=== PATIENT | female | born 1990 | race Caucasian/White ===

== ENCOUNTER → 2017-02-06 | Emergency (ER) | payer BC ==
[~2017-02-06] VITALS: Ht 160 cm; Wt 63.5 kg
[~2017-02-06] MED LIST: DiphenhydrAMINE 50mg/ml Inj IVP ONE; IBUPROFEN600 MG ORAL; Ketorolac 30mg Inj IV ONE; Metoclopramide 10mg/2ml Inj IVP ONE; TRAMADOL HCL50 MG ORAL; XANAX0.25 MG ORAL
[2017-02-06 03:15] VITALS: BP 109/77
--- NOTE | 2017-02-06 03:41 | Emergency Room Report ---
History of Present Illness General Chief Complaint: Headache Source: Patient Present Illness HPI This is a 27-year-old female with history of migraine. She presents with chief complaint of migraine headache that started this afternoon. She said as far as a mild headache and then progressive a migraine tonight. She has nausea and retching but no vomiting. No diarrhea. Similar symptom in the past. Localized to the right side and throbbing in nature. Has photophobia. Onset was gradual. Pain is 9/10. No fever or chills. Allergies: Coded Allergies: No Known Allergies (Unverified , 02/06/17) Patient History Past Medical History: see triage record, old chart reviewed, migraines Past Surgical History: none Pertinent Family History: none Social History: Denies: smoking Last Menstrual Period: yesterday Now: No : 0 Para: 0 Immunizations: other Reviewed Nursing Documentation: PMH: Agreed, PSxH: Agreed Nursing Documentation-PMH Past Medical History: No Stated History Review of Systems Eye: Denies: eye pain, blurred vision ENT: Denies: ear pain, nose congestion, throat swelling Respiratory: Denies: cough, shortness of breath Cardiovascular: Denies: chest pain, palpitations Gastrointestinal: Denies: abdominal pain, diarrhea, nausea, vomiting Musculoskeletal: Denies: back pain, joint pain Skin: Denies: rash Neurological: Reports: headache, Denies: numbness Endocrine: Denies: increased thirst, increased urine Hematologic/Lymphatic: Denies: easy bruising All Other Systems: negative except mentioned in HPI Physical Exam Vital Signs Date Time Temp Pulse Resp B/P (MAP) Pulse Ox O2 Delivery O2 Flow Rate FiO2 02/06/17 02:55 97.3 78 18 109/77 99 Room Air vitals normal Sp02 EP Interpretation: reviewed, normal General Appearance: well appearing, no apparent distress, alert Head: normocephalic, atraumatic Eyes: bilateral eye PERRL, bilateral eye EOMI ENT: hearing grossly normal, normal pharynx Neck: full range of motion, supple, no meningismus Respiratory: chest non-tender, lungs clear, normal breath sounds Cardiovascular #1: regular rate, rhythm, no murmur Gastrointestinal: normal bowel sounds, non tender, no mass, no organomegaly, no bruit, non-distended Musculoskeletal: back normal, gait/station normal, normal range of motion Psychiatric: mood/affect normal Skin: warm/dry Medical Decision Making Diagnostic Impression: Primary Impression: Headache Qualified Codes: R51 - Headache ER Course Patient with headache. No evidence of meningitis, bleed or neoplastic process. We will discharge home. She is better now. Last Vital Signs Date Time Temp Pulse Resp B/P (MAP) Pulse Ox O2 Delivery O2 Flow Rate FiO2 02/06/17 02:55 97.3 78 18 109/77 99 Room Air Status: improved Disposition: HOME, SELF-CARE Condition: Stable Scripts Tramadol Hcl* (ULTRAM*) 50 Mg Tablet 50 MG ORAL Q6H Y for For Pain, #20 TAB 0 Refills Prov: KAYY WILDE M.D. 02/06/17 Patient Instructions: Migraine Headache Additional Instructions: Followup with your Dr. in 2-3 days if not better. Return if worse. KAYY WILDE M.D. Feb 06, 2017 03:41
[2017-02-06 04:14] VITALS: BP 109/77
== END | disposition home or self-care (01) ==
LOC: EMR 03:30
DX: R51 Headache (principal); Z86.69 Personal history of other diseases of the nervous system and sense organs
CPT/HCPCS: 96374; 96375; 99284; J1200; J1885; J2765

== ENCOUNTER 2017-04-16 02:44 | Emergency (ER) | payer BC ==
[~2017-04-16] VITALS: Ht 160 cm; Wt 63.5 kg
[~2017-04-16 02:44] MED LIST changes: -DiphenhydrAMINE 50mg/ml Inj IVP ONE; -IBUPROFEN600 MG ORAL; -Ketorolac 30mg Inj IV ONE; -Metoclopramide 10mg/2ml Inj IVP ONE; -XANAX0.25 MG ORAL
[2017-04-16 02:50] VITALS: BP 111/78
[2017-04-16] MEDS ORDERED: XANAX0.25 MG ORAL (02:52)
[2017-04-16] MEDS ORDERED: IBUPROFEN600 MG ORAL (03:08)
[2017-04-16 03:10] VITALS: BP 111/78
--- NOTE | 2017-04-16 03:14 | Emergency Room Report ---
History of Present Illness General Chief Complaint: Flu Like Symptoms Source: Patient Present Illness HPI Patient presents with complaints of body ache runny nose congestion and sore throat Symptoms started on Friday She has started to feel somewhat better however as they persisted she presents to the ER reports that her job was asking for her to be checked Denies any neck pain or photophobia Denies any vomiting denies any diarrhea Questionable low-grade fever at home however it has resolved Allergies: Coded Allergies: No Known Allergies (Unverified , 02/06/17) Patient History Past Medical History: see triage record Pertinent Family History: none Last Menstrual Period: april Reviewed Nursing Documentation: PMH: Agreed, PSxH: Agreed Nursing Documentation-PMH History Of Psychiatric Problem: Yes - ANXIETY Review of Systems All Other Systems: negative except mentioned in HPI Physical Exam Vital Signs Date Time Temp Pulse Resp B/P (MAP) Pulse Ox O2 Delivery O2 Flow Rate FiO2 04/16/17 02:46 98.5 106 18 111/78 99 Room Air 98.4 Sp02 EP Interpretation: reviewed, normal General Appearance: well appearing, no apparent distress Head: normocephalic, atraumatic Eyes: bilateral eye PERRL, bilateral eye EOMI ENT: hearing grossly normal, TMs + canals normal, uvula midline, pharyngeal erythema - No pustules Neck: full range of motion, supple, no meningismus, no bony tend Respiratory: lungs clear, normal breath sounds, no rhonchi, no respiratory distress, no retraction, no accessory muscle use Cardiovascular #1: normal peripheral pulses, regular rate, rhythm, no edema, no gallop, no JVD, no murmur Gastrointestinal: normal bowel sounds, non tender, soft, no mass, no organomegaly, non-distended, no guarding, no hernia, no pulsatile mass, no rebound Genitourinary: no CVA tenderness Musculoskeletal: normal inspection Neurologic: oriented x3, responsive, clinical marketing manager III-XII nml as tested, motor strength/ tone normal, sensory intact Psychiatric: mood/affect normal Skin: normal color, no rash, warm/dry, palpation normal Lymphatic: normal inspection, no adenopathy Medical Decision Making Diagnostic Impression: Primary Impression: Influenza-like symptoms ER Course Patient has signs and symptoms in-line with flulike pathology No signs of any meningitis consideration for bacterial infection is also made patient otherwise looks well And is stable for initial conservative outpatient trial As her symptoms have been ongoing now for the past 5 days Tamiflu was not indicated Last Vital Signs Date Time Temp Pulse Resp B/P (MAP) Pulse Ox O2 Delivery O2 Flow Rate FiO2 04/16/17 02:50 106 18 Room Air 04/16/17 02:50 98.4 111/78 99 98.4 Status: unchanged Disposition: HOME, SELF-CARE Condition: Stable Scripts Ibuprofen* (MOTRIN*) 600 Mg Tablet 600 MG ORAL Q8H Y for For Pain, #20 TAB 0 Refills Prov: HORACE MARY D.O. 04/16/17 Departure Forms: Return to Work Return to Work in (Days): 1 Return to Work Date: Apr 17, 2017 Patient Instructions: Influenza, Adult, [id number] Additional Instructions: Patient is provided with the discharge instructions notified to follow up with primary doctor in the next 2-3 days otherwise return to the er with any worsening symptoms. Please note that this report is being documented using [employer] technology. This can lead to erroneous entry secondary to incorrect interpretation by the dictating instrument. HORACE MARY D.O. Apr 16, 2017 03:13
== END 2017-04-16 03:15 | disposition home or self-care (01) ==
LOC: EMR 02:59
DX: J11.1 Influenza due to unidentified influenza virus with other respiratory manifestations (principal); F41.9 Anxiety disorder, unspecified
CPT/HCPCS: 99283